=== PATIENT | female | born 1990 | race Caucasian/White ===

== ENCOUNTER 2016-09-01 18:21 | Emergency (ER) | payer OTHER ==
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
== END 2016-09-01 20:26 | disposition home or self-care (01) ==
LOC: CED 18:21
DX: S60.221A Contusion of right hand, initial encounter (principal); V87.8XXA Person injured in other specified noncollision transport accidents involving motor vehicle (traffic), initial encounter; Y92.89 Other specified places as the place of occurrence of the external cause
CPT/HCPCS: 29280; 73130; 99283